=== PATIENT | female | born 1980 | race Two or more races ===

== ENCOUNTER → 2024-08-05 | Outpatient (CLI) | payer OTHER, SELFPAY ==
--- NOTE | 2024-08-05 09:00 | XR_ITS ---
Examination: MRI lumbar spine without contrast Date and time of exam: August 05, 2024 at 0953 hours Comparison March 10, 2022 INDICATIONS: Low back pain radiating to the legs for years worse the last 2 years Technique: Multiple MRI axial and sagittal sections lumbar spine. Sagittal T2-weighted images, TR 3500, TE 118 T1 weighted transverse sections, TR 688 T8.5, T2-weighted sagittal sections T1 weighted sagittal sections TR 621, TE 30 T2 axial sections, TR 4, 190, TE 84. Findings: Grade 1 anterolisthesis L3 on L4, L4 on L5 No lumbar fracture Adequate marrow signal lumbar vertebral bodies Moderate disc narrowing L3-L4, L4-L5 Diffuse lumbar disc desiccation L5-S1 3 mm central lumbar disc bulge L4-L5 moderate to severe overall spinal stenosis, axial image 4, 6 mm central lumbar disc bulge, facet arthropathy and thickening of ligamenta flava L3-L4 moderate to severe overall spinal stenosis, 3 mm and the lumbar disc bulge, facet arthropathy and thickening of ligamentum flavum L2-L3 no disc protrusion L1-L2 no disc protrusion IMPRESSION: Moderate degenerative disc disease L3-L4, L4-L5 L5-S1 3 mm central lumbar disc bulge L4-L5, L3-L4 moderate to severe overall spinal stenosis
== END | disposition home or self-care (01) ==
LOC: SMRI 08:31
PROVIDERS: Referring Provider Specialist; Visit Provider Specialist
DX: M51.360 Other intervertebral disc degeneration, lumbar region with discogenic back pain only (principal); M51.370 Other intervertebral disc degeneration, lumbosacral region with discogenic back pain only; M48.061 Spinal stenosis, lumbar region without neurogenic claudication
CPT/HCPCS: 72148